=== PATIENT | male | born 1960 | race Caucasian/White ===

== ENCOUNTER 2019-01-22 08:21 | Day surgery (SDC) | payer BC ==
[~2019-01-22 08:21] MED LIST: CEFAZOLIN 2 Gram 2 GM/50 ML BAG IVPB ONE
[2019-01-22] MEDS ORDERED: DEXAMETHASONE 4 MG/ML 1ML VIAL IVP ONE (08:22)
[2019-01-22] MEDS ORDERED: PROPOFOL 10 MG/ML VIAL IV ONE (08:22)
[2019-01-22] MEDS ORDERED: FENTANYL PF 100MCG/2ML VIAL IV ONE (08:22)
[2019-01-22] MEDS ORDERED: BUPIVACAINE LIPOSOME/PF 133MG/10ML VIAL IV ONE (08:22)
[2019-01-22] MEDS ORDERED: MIDAZOLAM HCL 2MG/2ML VIAL IV ONE (08:22)
[2019-01-22] MEDS ORDERED: LIDOCAINE 2% MDV (20MG/ML) 20ML VIAL IV ONE (08:22)
[2019-01-22] MEDS ORDERED: BUPIVACAINE 0.25% MPF 30ML VIAL IVP ONE (08:22)
[2019-01-22] MEDS ORDERED: BUPIVACAINE 0.5% W/EPI MPF 30 ML VIAL SQ ONE (13:27)
[2019-01-22] MEDS ORDERED: MORPHINE SULFATE 5 MG/ML VIAL IJ ONE (13:27)
[2019-01-22] MEDS ORDERED: METHYLPREDNISOLONE 40MG/VIAL IM ONE (13:27)
--- NOTE | 2019-01-24 08:20 | Operative Note ---
DATE OF SURGERY: 01/22/2019 PREOPERATIVE DIAGNOSIS: Left shoulder impingement. Question tear of the rotator cuff. POSTOPERATIVE DIAGNOSES: 1. Tear of the left rotator cuff, chronic. 2. 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 3. Grade 3 chondromalacia of the glenoid. 4. Complex superior glenohumeral labral tear. 5. Profound external impingement, left shoulder. 6. Advanced arthrosis, left distal clavicle. OPERATION: 1. Repair of a chronically torn left rotator cuff tear. 2. Left shoulder arthroscopy with intraarticular debridement. 3. Left shoulder open acromioplasty, CA ligament resection, and subacromial bursectomy. 4. Left shoulder distal clavicle resection. Staff Surgeon: Derek Amin MD Anesthesia: General. Preparation: Chloraprep. Individual Considerations: None. PROCEDURE: The patient was taken to the operating room, placed supine on the operating room table. He had a successful induction with general anesthetic. He was then placed in a semi-seated beach chair position. His left arm and shoulder were prepped and draped in the usual fashion. Examination under anesthesia showed that he had good motion and no instability. The patient had posterior portal identified for arthroscopy. Skin was infiltrated with 0.5% Marcaine with epinephrine prior. An 18-gauge spinal needle was easily placed in the joint, and the joint was inflated with normal saline with a 60-mL syringe. A stab wound was made, and a blunt-tipped trocar for the scope was easily placed in the joint. The joint was inflated with normal saline. An anterior accessory portal was then made just inferior to the intact long head of the biceps tendon in a retrograde fashion with a Wissinger twila, and the joint was irrigated out. The patient had grade 3-4 change on the humeral head with peeling cartilage in some areas down to bone, grade 3 changes in the glenoid. A large labral flap tear which was basically more posterior-based and intact subscap and an intact long head. Obvious tear of the supraspinatus. A shaver was introduced and the unstable areas were debrided. After irrigation, portals were closed with uyen. The patient had an anterior approach to the subacromial space and distal clavicle. Skin was again infiltrated with 0.5% Marcaine with epinephrine prior. Sharp dissection carried down through skin and subcutaneous tissues. Small veins were coagulated with a Bovie. An anterior deltoid interval was developed. Care was taken not to split the deltoid more than about 4 cm distal to the anterior tip of the acromion to prevent injury to the axillary nerve. Once in the subacromial space, there was a large orantes of fluid consistent with a tear. The deltoid was then taken subperiosteally off the anterior aspect of the acromion which had a huge anterior spur, over the top of the intact CA ligament, and off the anterior aspect of the highly degenerated distal clavicle. CA ligament was resected with a Bovie. Distal clavicle was resected with an oscillating saw taking about 1 cm. I did an anterior acromioplasty taking a little over 1 cm most of this being a spur and tapering towards posteromedially to include the spurs at the AC joint. The undersurface was then smoothed with a rasp. A large bursa was debrided out, and. I had a good look at the rotator cuff. On the supraspinatus, there was a 2 cm oblique tear. I was able to debride it back to good bleeding tendon and mobilize it to reattach it to the tuberosity which I freshened up with a sherita to create a small trough. Retention sutures and #1 Ethibond suture were placed into the end of the freshened tendon and then drawn into the trough through holes tied down distally. This affected a near anatomic repair. I put the shoulder through a full range of motion to ensure no further impingement. After irrigation, deltoid was reattached to the remaining acromion with multiple interrupted #2 Vicryl going directly through the bony acromion. Anterior deltoid interval was closed with running #1 Vicryl. Periosteal cup and distal clavicle were closed with a running #2 Vicryl. Subcu was closed with 2-0 plus Vicryl and skin was closed with uyen. Then 15 mL of 0.5% Marcaine with epinephrine along with 10 mg of morphine were injected into the subacromial space, and a sterile bulky compressive dressing and sling were applied. applied. The patient tolerated the procedure well. Needle and sponge counts were correct. Estimated blood loss was minimal. He was taken back to recovery in good condition. There were no complications. [facility]
== END 2019-01-22 15:16 | disposition home or self-care (01) ==
LOC: SUR 08:21
PROVIDERS: ATTEND Orthopaedic Surgery
DX: M75.102 Unspecified rotator cuff tear or rupture of left shoulder, not specified as traumatic (principal); S43.432A Superior glenoid labrum lesion of left shoulder, initial encounter; M94.212 Chondromalacia, left shoulder; M19.012 Primary osteoarthritis, left shoulder; I10 Essential (primary) hypertension
CPT/HCPCS: 76942; 93005; C9290; J1030